=== PATIENT | female | born 1965 | race Caucasian/White ===

== ENCOUNTER 2020-06-30 15:21 | Inpatient (IN) | payer MEDICAID, SELFPAY ==
[2020-06-30 15:22] VITALS: BP 112/94; PULSE 80; RESP 18; TEMP 36.6; O2SAT 94; BMI 22.2
--- NOTE | 2020-06-30 15:23 | W.ED.PSYCH ---
HPI - Psych General: Chief Complaint: Psychiatric Symptoms Stated Complaint: SI Time Seen by Provider: 06/30/20 15:23 Source: patient and EMS Mode of arrival: EMS Limitations: no limitations History of Present Illness: HPI Narrative: Patient is a 55-year-old female who presents to ED today with a complaint of suicidal ideations. Patient tells me she was sitting on the side of a railroad track hoping the train would come and run her over but states of the last minute she jumped off. Patient states she has lost several family members and states I am the only one left . She states she is having thoughts of wanting to know what it is like on the other side . Patient denies homicidal ideations. She is not experiencing hallucinations. She denies drug use. She admits to occasional alcohol use. Patient sees a provider at [facility] who is treating diagnoses of bipolar, schizophrenia, OCD, and depression. Associated symptoms: Reports depression and suicidal ideation; Deny auditory hallucinations, visual hallucinations or homicidal ideation Treatments prior to arrival: none Review of Systems Const: Denies: fever(s) or chills Card: Denies: chest pain, palpitations, lightheadedness or syncope Resp: Denies: dyspnea GI: Denies: abdominal pain, nausea, vomiting or diarrhea Musc: Denies: neck pain or back pain Skin/Breast: Denies: rash Neuro: Denies: headache(s) Psych: Reports: anxiety, depression and suicidal ideation; Denies: visual hallucinations, auditory hallucinations or homicidal ideation Physical Exam Const: COMMON NORMALS: no acute distress, average body habitus, patient oriented x3, no limitations, healthy appearing, alert and well nourished GENERAL APPEARANCE: cooperative and well kempt ORIENTATION/CONSCIOUSNESS: Yes oriented to person, Yes oriented to place and Yes oriented to time Resp: COMMON NORMALS: normal respiratory effort and clear to auscultation bilaterally AUSCULTATION: clear to auscultation bilaterally Cardio: COMMON NORMALS: regular rate and regular rhythm RATE: regular rate RHYTHM: regular rhythm Neuro: COMMON NORMALS: patient oriented x3 SENSORIUM/ORIENTATION: Yes alert, Yes oriented to person, Yes oriented to place and Yes oriented to time Psych: COMMON NORMALS: mental status grossly normal, Normal thought process present, cooperative, normal affect, speech normal, activity/motor behavior normal, denies hallucinations and denies homicidal ideation APPEARANCE: Yes grossly normal and Yes well kempt ACTIVITY/MOTOR BEHAVIOR: Yes appropriate eye contact and No psychomotor agitation SPEECH: Yes normal speech MOOD & AFFECT: Yes euthymic mood THOUGHT PROCESS: Normal thought process present THOUGHT CONTENT: Yes Normal thought content present ATTENTION/CONCENTRATION: Yes attention grossly intact and Yes concentration grossly intact MEMORY/COGNITION: Yes memory grossly intact and Yes cognition grossly intact INSIGHT: Good insight present (Psych) JUDGEMENT: Good judgement present (Psych) MDM - Psych Lab Data: Labs: Lab Results 06/30/20 06/30/20 06/30/20 Range/Units 15:33 15:40 15:45 WBC 5.0 (4.0-10.0) 10^3/ uL RBC 4.78 (4.1-5.3) 10^6/u L Hgb 15.5 H (11.5-15.3) g/dL Hct 46.8 (37.0-47.0) % MCV 97.9 (81-99) fL MCH 32.4 (28.0-34.0) pg MCHC 33.1 (30.0-36.0) g/dL RDW 14.6 (12.1-15.1) % Plt Count 179 (130-400) 10^3/c mm MPV 10.0 (7.4-10.4) fL Neut % (Auto) 29.8 % Lymph % (Auto) 61.0 % [place]osh[place] % (Auto) 6.6 % Eos % (Auto) 1.6 % Baso % (Auto) 0.8 % Neut # (Auto) 1.50 L (1.8-7.7) 10^3/u L Lymph # (Auto) 3.1 (0.8-4.8) 10^3/u L [place]oshone # (Auto) 0.3 (0.2-0.9) 10^3/u L Eos # (Auto) 0.1 (0.0-0.8) 10^3/u L Baso # (Auto) 0.0 (0.0-0.1) 10^3/u L Nucleated RBC % (a uto) 0 % Nucleated RBCs # 0.0 /100WBC Sodium 140 (136-145) mmol/L Potassium 3.8 (3.5-5.1) mmol/L Chloride 102 (98-107) mmol/L Carbon Dioxide 25 (22-29) mmol/L Anion Gap 16.8 (5-19) BUN 8 (6-20) mg/dL Creatinine 0.6 (0.5-0.9) mg/dL GFR Calculation 104.2 (90-130) mL/min Glucose 102 (65-115) mg/dL Calculated Osmolal ity 286 (285-295) mOsm/k g Calcium 9.1 (8.5-10.5) mg/dL Total Bilirubin 0.2 (0.15-1.2) mg/dL AST 23 (0-32) U/L ALT 17 (0-33) U/L Alkaline Phosphata se 84 (35-105) IU/L Total Protein 8.5 (6.6-8.7) g/dL Albumin 4.7 (3.5-5.2) g/dL Globulin 3.8 (1.3-4.6) g/dL Salicylates < 0.3 L (3-10) mg/dL Urine Opiates Scre en Negative (Negative) ng/mL Acetaminophen < 5.0 L (10-30) ug/mL Ur Barbiturates Sc reen Negative (Negative) ng/mL Ur Phencyclidine S crn Negative (Negative) ng/mL Ur Amphetamines Sc reen Positive H (Negative) ng/mL U Benzodiazepines Scrn Negative (Negative) ng/mL Urine Cocaine Scre en Negative (Negative) ng/mL U Marijuana (THC) Screen Negative (Negative) ng/mL Ethyl Alcohol 174 H (0-10) mg/dL Discharge Plan Discharge Patient Disposition: Admitted As Inpatient Clinical Impression: Suicidal ideation Condition: Stable Coding Level of Care Code ED Development Consultant for Arlette Fwd Exam Expanded Problem Focused
[2020-06-30 15:38] VITALS: RESP 18
[2020-06-30 15:48] LABS: Basophils % 0.8 %; Eosinophils # 0.1 10^3/uL (0.0-0.8); Eosinophils % 1.6 %; Hematocrit 46.8 % (37.0-47.0); Hemoglobin 15.5 g/dL (11.5-15.3); Lymphocytes # 3.1 10^3/uL (0.8-4.8); Mean Corpuscular HGB Conc 33.1 g/dL (30.0-36.0); Mean Corpuscular Hemoglobin 32.4 pg (28.0-34.0); Mean Corpuscular Volume 97.9 fL (81-99); Monocytes # 0.3 10^3/uL (0.2-0.9); Monocytes % 6.6 %; Neutrophils % 29.8 %; Nucleated Red Blood Cells % 0 %; Platelet Count 179 10^3/cmm (130-400); Red Blood Count 4.78 10^6/uL (4.1-5.3); Red Cell Distribution Width 14.6 % (12.1-15.1)
[2020-06-30 16:09] LABS: Amphetamines Screen Urine Positive (Negative); Barbiturates Screen Urine Negative (Negative); Benzodiazepines Screen Urine Negative (Negative); Cocaine Screen Urine Negative (Negative); Opiate Screen Urine Negative (Negative); PCP Screen Urine Negative (Negative); THC Screen Urine Negative (Negative)
[2020-06-30 16:14] LABS: Alanine Aminotransferase 17 U/L (0-33); Albumin Level 4.7 g/dL (3.5-5.2); Alcohol Level 174 mg/dL (0-10); Alkaline Phosphatase 84 IU/L (35-105); Anion Gap 16.8 (5-19); Aspartate Amino Transferase 23 U/L (0-32); Blood Urea Nitrogen 8 mg/dL (6-20); Calcium 9.1 mg/dL (8.5-10.5); Carbon Dioxide 25 mmol/L (22-29); Chloride 102 mmol/L (98-107); Globulin 3.8 g/dL (1.3-4.6); Glomerular Filtration Rate 104.2 mL/min (90-130); Glucose 102 mg/dL (65-115); Osmolality Calculated 286 mOsm/kg (285-295); Potassium 3.8 mmol/L (3.5-5.1); Sodium 140 mmol/L (136-145); Total Bilirubin 0.2 mg/dL (0.15-1.2); Total Protein 8.5 g/dL (6.6-8.7)
[2020-06-30 16:24] LABS: Acetaminophen < 5.0 ug/mL (10-30); Salicylate < 0.3 mg/dL (3-10)
[2020-06-30 16:41] VITALS: BP 108/69; PULSE 76; RESP 18; TEMP 37.1; O2SAT 95
[2020-06-30 16:53] VITALS: RESP 18
[2020-06-30] MEDS: nicotine 2 mg Gum BUCCAL (18:13)
[2020-06-30] MEDS: LORazepam 2 mg Tablet PO (18:46)
[2020-06-30] MEDS: trazodone 50 mg Tablet PO (20:14)
--- NOTE | 2020-06-30 20:14 | PC.NURSE ---
PRN TRAZODONE PT REQUESTING SLEEP AID. ADMINISTERED TRAZODONE 50MG PO. WILL MONITOR FOR MEDICATION EFFECTIVENESS.
[2020-06-30 20:53] VITALS: BP 136/84; PULSE 75; RESP 21; TEMP 37; O2SAT 97
[2020-07-01 06:00] VITALS: BP 101/68; PULSE 81; RESP 15; TEMP 36.9; O2SAT 94
[2020-07-01] MEDS: lurasidone 20 mg Tablet PO (08:12)
[2020-07-01] MEDS: folic acid 1 mg Tablet PO (08:12)
[2020-07-01] MEDS: multivitamin therapeutic Tablet 1 TAB PO (08:12)
[2020-07-01] MEDS: thiamine 100 mg Tablet PO (08:13)
[2020-07-01 14:00] VITALS: BP 124/70; PULSE 80; RESP 19; TEMP 37.3
--- NOTE | 2020-07-01 14:14 | PM.NHP ---
Providers/Chief Complaint Admitting Physician: Gurwinder Billingsley MD Referral Source: [facility] Chief Complaint: SI HPI NPU History of Present Illness Leda Knapp is a 55 year old female who presented to ED yesterday with a complaint of suicidal ideation. Patient was sitting on the railroad track hoping a train would run her over but at the last minute she jumped off. Patient states she has lost several family members and states I am the only one left . This is not entirely true. Upon inquiry, she says she has cousins, aunts and uncles. She states she is having thoughts of wanting to know what it is like on the other side . Patient denies homicidal ideation. She is not experiencing hallucinations. She denies drug use but her urine is positive for methamphetamine as well as alcohol. She admits to occasional alcohol use. Patient sees a provider at [facility] who is treating diagnoses of bipolar disorder, schizophrenia, OCD, and depression. Associated symptoms: Reports depression and suicidal ideation; Deny auditory hallucinations, visual hallucinations or homicidal ideation Review of Systems Narrative: Const: Denies: fever(s) or chills Card: Denies: chest pain, palpitations, lightheadedness or syncope Resp: Denies: dyspnea GI: Denies: abdominal pain, nausea, vomiting or diarrhea Musc: Denies: neck pain or back pain Skin/Breast: Denies: rash Neuro: Denies: headache(s) Psych: Reports: anxiety, depression and suicidal ideation; Denies: visual hallucinations, auditory hallucinations or homicidal ideation Meds NPU Home Medications Medication Instructions Recorded Confirmed Last Taken Type budesonide-formoterol [Symbicort] 1 puff INHALATION BID 06/30/20 06/30/20 06/30/20 History lurasidone [Latuda] 20 mg PO DAILY 06/30/20 06/30/20 06/30/20 History trazodone 100 mg PO BEDTIME 06/30/20 06/30/20 06/29/20 History Allergies Allergy/AdvReac Type Severity Reaction Status Date / Time No Known Allergies Allergy Verified 06/30/20 15:29 Mental Status Exam MSE Comments: The patient is a 55-year-old female who presents at her stated age. She is clean and neat and well organized. There are no inappropriate behaviors. Mood, however is despondent and affect is flat. She has limited thought processes and may be cognitively impaired. Orientation, however, is sufficient for safety but not insight and judgment. She now avows that she can keep herself safe in the structure of the millbanner. Vitals/I&O/Wt Last Vital Signs Temp 98.4 F 07/01/20 06:00 Pulse 81 07/01/20 06:00 Resp 15 07/01/20 06:00 BP 101/68 07/01/20 06:00 Pulse Ox 94 07/01/20 06:00 Weight last 48 hrs Weight 108 lb 12.8 oz Weight 110 lb Physical Exam Narrative: EXAM NARRATIVE: Const: COMMON NORMALS: no acute distress, average body habitus, patient oriented x3, no limitations, healthy appearing, alert and well nourished GENERAL APPEARANCE: cooperative and well kempt ORIENTATION/CONSCIOUSNESS: Yes oriented to person, Yes oriented to place and Yes oriented to time Resp: COMMON NORMALS: normal respiratory effort and clear to auscultation bilaterally AUSCULTATION: clear to auscultation bilaterally Cardio: COMMON NORMALS: regular rate and regular rhythm RATE: regular rate RHYTHM: regular rhythm Neuro: COMMON NORMALS: patient oriented x3 SENSORIUM/ORIENTATION: Yes alert, Yes oriented to person, Yes oriented to place and Yes oriented to time Data NPU : 06/30/20 15:33 06/30/20 15:40 A&P Assessment and plan (1) Suicidal ideation: See below. Status: Acute (2) Schizoaffective disorder, bipolar type: Patient states that Latuda works well for her. Between pharmacotherapy, millieu and grief therapy she should do well. Status: Acute Involuntary Hold Information 96 Hour Hold: 96 Hour Involuntary Admission: No Other Hold: Comments: An affidavit is in the chart. Attestations NPU Medical Necessity Statement*: I anticipate 4-6 midnights additional hospital stay. Coding Level of Care Code Acute Bull Driver for Arlette Quevedo Diagnoses Suicidal ideation R45.851 Schizoaffective disorder, bipolar type F25.0
[2020-07-01] MEDS: nicotine 2 mg Gum BUCCAL (17:58)
[2020-07-01] MEDS: trazodone 100 mg Tablet PO (20:47)
[2020-07-01 22:00] VITALS: BP 144/62; PULSE 72; RESP 17; TEMP 36.6; O2SAT 96
[2020-07-02 06:00] VITALS: BP 123/82; PULSE 69; RESP 17; TEMP 36.5; O2SAT 95
[2020-07-02] MEDS: multivitamin therapeutic Tablet 1 TAB PO (08:44)
[2020-07-02] MEDS: nicotine 2 mg Gum BUCCAL ×2 (08:44→12:46)
[2020-07-02] MEDS: lurasidone 20 mg Tablet PO (08:44)
[2020-07-02] MEDS: folic acid 1 mg Tablet PO (08:44)
[2020-07-02] MEDS: thiamine 100 mg Tablet PO (08:44)
[2020-07-02 14:00] VITALS: BP 135/90; PULSE 77; RESP 18; TEMP 36.3; O2SAT 94
--- NOTE | 2020-07-02 15:04 | P.PN_ITS ---
Subjective NPU Medications: Reviewed: Yes Medication Review Details: Current Medications Acetaminophen (Tylenol) 650 mg PO Q4H PRN PRN Reason: MILD PAIN Benztropine Mesylate (Cogentin) 1 mg PO BID PRN PRN Reason: Mild Extrapyramidal symptoms Camphor/Menthol/Phenol (Blistex) 1 applic TOPICAL Q1H PRN PRN Reason: DRYNESS Diphenhydramine HCl (Benadryl) 50 mg IM ONCE PRN PRN Reason: Severe Extrapyramidal Symptoms Diphenhydramine HCl (Benadryl) 50 mg IM Q4H PRN PRN Reason: Severe Aggression Folic Acid (Folic Acid) 1 mg PO DAILY [facility] Last Admin: 07/02/20 08:44 Dose: 1 mg Documented by: Haloperidol (Haldol) 5 mg PO Q4H PRN PRN Reason: AGITATION Haloperidol Lactate (Haldol Inj) 5 mg IM Q4H PRN PRN Reason: Severe Aggression Hydroxyzine Pamoate (Vistaril) 50 mg PO Q6H PRN PRN Reason: ANXIETY Loperamide HCl (Imodium Capsule) 2 mg PO Q6H PRN PRN Reason: DIARRHEA Lorazepam (Ativan) 2 mg IM Q4H PRN PRN Reason: Severe Aggression Lorazepam (Ativan) 2 mg IM PROTOCOL PRN; Protocol PRN Reason: ALCOWD Lorazepam (Ativan) 2 mg PO PROTOCOL PRN; Protocol PRN Reason: WITHDRAWAL Last Admin: 06/30/20 18:46 Dose: 2 mg Documented by: Lurasidone HCl (Latuda) 20 mg PO DAILY [facility] Last Admin: 07/02/20 08:44 Dose: 20 mg Documented by: Multivitamins Therapeutic (Multivitamin Tab) 1 tab PO DAILY [facility] Last Admin: 07/02/20 08:44 Dose: 1 tab Documented by: Nicotine (Nicoderm 21 Mg Patch) 1 patch TRANSDERMA DAILY PRN PRN Reason: NICOTINE WITHDRAWAL Nicotine Polacrilex (Nicorette) 2 mg BUCCAL Q2H PRN PRN Reason: NICOTINE WITHDRAWAL Last Admin: 07/02/20 12:46 Dose: 2 mg Documented by: Olanzapine (Zyprexa Zydis) 5 mg PO Q4H PRN PRN Reason: Agitation/Psychosis Ondansetron HCl (Zofran) 4 mg PO Q6H PRN PRN Reason: NAUSEA AND VOMITING Fluticasone/Salmeterol (Advair Diskus 500-50) 1 puff INHALATION BID [facility] Last Admin: 07/02/20 12:47 Dose: Not Given Documented by: Thiamine Mononitrate (Vitamin B-1) 100 mg PO DAILY [facility] Last Admin: 07/02/20 08:44 Dose: 100 mg Documented by: Trazodone HCl (Desyrel) 50 mg PO BEDTIME PRN PRN Reason: SLEEP Last Admin: 06/30/20 20:14 Dose: 50 mg Documented by: Trazodone HCl (Desyrel) 100 mg PO BEDTIME [facility] Last Admin: 07/01/20 20:47 Dose: 100 mg Documented by: Vitals/I&O/Wt Last Vital Signs Temp 97.7 F 07/02/20 06:00 Pulse 69 07/02/20 06:00 Resp 17 07/02/20 06:00 BP 123/82 07/02/20 06:00 Pulse Ox 95 07/02/20 06:00 Weight last 48 hrs Weight 108 lb 12.8 oz Weight 110 lb Data NPU : 06/30/20 15:33 06/30/20 15:40 Involuntary Hold Information 96 Hour Hold: 96 Hour Involuntary Admission: No Coding Level of Care Code Acute Rock Wool Insulator for Arlette Quevedo
--- NOTE | 2020-07-02 15:12 | PM.NDC ---
Diagnoses at Discharge Discharge Diagnosis (1) Suicidal ideation: Status: Resolved (2) Schizoaffective disorder, bipolar type: Status: Chronic Problem details: Patient has plan for follow-up. Reason for Visit Reason for Visit: SI Hospital Course Hospital Course The patient has been off drugs of abuse. She is taking her regular regimen and been involved a in the [employer]. She was easily redirectable and improved with each passing day. Discharge Summary Patient is referred to [facility] for mental health follow-up. She also has referral information for [facility]. Involuntary Hold Information 96 Hour Hold: 96 Hour Involuntary Admission: No Mental Status Exam MSE Comments: The patient is a 55-year-old female who presents at her stated age. She is clean and neat and well organized. There are no inappropriate behaviors. Mood is now not only not despondent but upbeat and affect is bright and cheery. She has a plan for staying out of the NPU and today does not look cognitively impaired. Orientation, insight and judgment are sufficient for safety. She now avows that she will follow her discharge plans and feels very comfortable with the idea of going home. Discharge Data Vitals: Last Vital Signs Temp 97.7 F 07/02/20 06:00 Pulse 69 07/02/20 06:00 Resp 17 07/02/20 06:00 BP 123/82 07/02/20 06:00 Pulse Ox 95 07/02/20 06:00 Discharge Plan Discharge Patient Disposition: Home Condition: Stable Prescriptions: Discontinued trazodone 100 mg tablet 100 mg PO BEDTIME RF: 0 budesonide-formoterol [Symbicort] 160-4.5 mcg/actuation HFA aerosol inhaler 1 puff INHALATION BID RF: 0 Latuda 20 mg tablet 20 mg PO DAILY RF: 0 Discharge Orders: Discharge Order (Routine); Ordered 07/02/20 Ordered By: [place] Referrals: [facility] in [facility] [Other] - 1-3 days (call and request an initial intake for outpatient mental health services. ) [facility] [Outside] (If you are interested in substance abuse treatment, do call and schedule an initial intake. [facility] is also known [facility]. ) Discharge Diet: Usual diet Discharge Activity: Resume usual activity Activity Restrictions/Additional Instructions: If you want to get a ride through medicaid transport, call at least 5 days ahead at [phone]. Have your address, phone number and provider name to give for the provider information. have your medicaid number available too. NA meetings: Juan M Redmond on Thursday @ 5:30 p.m. - [address] [place] [address] Discharge Attestations NPU Time Spent in Discharge Care*: greater than 30 min Specific Discharge Activities: Specific discharge activities: educating patient, discussing with pillowcase cleaner/social workers/dc planners, documenting/other paperwork and evaluating patient/reviewing data Other discharge activites (optional): Medication review. Status at Discharge: Cognitive status at discharge: cognitively intact, Behavioral status at discharge: cooperative, Functional status at discharge: independent ambulation Overall status at discharge: patient is back to baseline Coding Level of Care Code Acute Computer System Specialist for Arlette Quevedo Diagnoses Suicidal ideation R45.851 Schizoaffective disorder, bipolar type F25.0
[2020-07-02 15:13] VITALS: BP 123/82; PULSE 69; RESP 17; TEMP 36.5; O2SAT 95
== END 2020-07-02 16:45 | disposition home or self-care (01) | DRG 885 ==
LOC: ER 16:32 → NP 16:47
PROVIDERS: Physician Assistant; Admitting Provider Psychiatry & Neurology Psychiatry; Visit Provider Psychiatry & Neurology Psychiatry
DX: F25.0 Schizoaffective disorder, bipolar type (principal); R45.851 Suicidal ideations
CPT/HCPCS: 12345; 80053; 80306; 80307; 85025; 99284

== ENCOUNTER → 2020-07-20 08:25 | Outpatient (BNVA) | payer MEDICAID, SELFPAY | PROVIDERS: Visit Provider Counselor Professional | DX: F25.0 Schizoaffective disorder, bipolar type (principal) | CPT/HCPCS: 90832 ==

== ENCOUNTER 2021-03-14 02:12 | Inpatient (IN) | payer MEDICAID, SELFPAY ==
[2021-03-14 02:15] VITALS: BP 124/58; PULSE 84; RESP 20; TEMP 36.7; O2SAT 94; BMI 23.2
--- NOTE | 2021-03-14 02:18 | ED_ITS ---
HPI - Psych General: Chief Complaint: General Medical Stated Complaint: SI Time Seen by Provider: 03/14/21 02:15 Source: patient and EMS Mode of arrival: EMS Limitations: no limitations History of Present Illness: HPI Narrative: 56-year-old female who has a history of bipolar states that she would like her meds are no longer working. She states she is just been extremely anxious and feels manic. She is disheveled has rapid speech. She denies any suicidal homicidal ideation states she feels like she needs to be admitted to adjust her meds for her leonides. She denies any worsening proving factors. Denies any drug use. Associated symptoms: Reports depression Review of Systems Const: Denies: fever(s), chills, body aches or change in appetite Eyes: Denies: blurry vision or eye discomfort ENMT: Denies: throat pain or dental pain Card: Denies: chest pain Resp: Denies: dyspnea GI: Denies: abdominal pain, nausea, vomiting or diarrhea : Denies: dysuria Musc: Denies: neck pain or back pain Skin/Breast: Denies: rash Neuro: Denies: headache(s) Psych: Reports: anxiety, depression, mood swings and sleeping less Raj/Lymph: Denies: easy bruising All/Imm: Denies: urticaria PFSH ED PFSH: Medical History (Updated 03/14/21 @ 03:18 by Sim Lockwood MD) COPD (chronic obstructive pulmonary disease) Social History Current gender identity: Female Physical Exam Const: COMMON NORMALS: no acute distress, patient oriented x3 and healthy appearing GENERAL APPEARANCE: disheveled HENMT: COMMON NORMALS: normocephalic and atraumatic HEAD & SCALP: normocephalic and atraumatic Eye: COMMON NORMALS: Equal, round and reactive pupils present and EOMs intact bilaterally PUPIL: Yes Equal, round and reactive pupils present Neck/C-Spine: COMMON NORMALS: full ROM and supple Chest: COMMONS NORMALS: normal inspection of the chest and normal palpation of entire chest wall Resp: COMMON NORMALS: normal respiratory effort, No retractions, No use of accessory muscles and clear to auscultation bilaterally AUSCULTATION: clear to auscultation bilaterally Cardio: COMMON NORMALS: regular rate, regular rhythm and No murmurs present (Cardio) RATE: regular rate RHYTHM: regular rhythm GI: COMMON NORMALS: Normal to inspection, nondistended, normoactive bowel sounds present, Soft to palpation, non-tender and no masses PALPATION: Yes Soft to palpation Extremity: COMMON NORMALS: normal to inspection and full ROM Neuro: COMMON NORMALS: patient oriented x3, moves all extremities and no focal motor deficits Psych: COMMON NORMALS: mental status grossly normal, Normal thought process present and cooperative MOOD & AFFECT: Yes elevated mood and Yes anxious THOUGHT PROCESS: Normal thought process present, disorganized and Flight of ideas present Skin: COMMON NORMALS: no rashes or lesions noted and no wounds GENERAL SKIN EXAM: no rashes or lesions noted Course Vital Signs: Vital signs: Vital Signs Temperature 98.1 F 03/14/21 02:15 Pulse Rate 84 03/14/21 02:15 Respiratory Rate 20 H 03/14/21 02:15 Blood Pressure 124/58 03/14/21 02:15 Pulse Oximetry 94 03/14/21 02:15 MDM - Psych MDM Narrative: Medical decision making narrative: Patient presents here with acute leonides with her bipolar. Patient is voluntarily wanting to be admitted. She is not SI or HI I spoke to psychiatrist and will admit for medication adjustment. Patient has been stable while here and is medically cleared. Lab Data: Labs: Lab Results 03/14/21 03/14/21 Range/Units 02:40 02:40 WBC 6.1 (4.0-10.0) 10^3/ uL RBC 4.22 (4.1-5.3) 10^6/u L Hgb 13.1 (11.5-15.3) g/dL Hct 42.0 (37.0-47.0) % MCV 99.5 H (81-99) fL MCH 31.0 (28.0-34.0) pg MCHC 32.2 (30.0-36.0) g/dL RDW 14.0 (12.1-15.1) % Plt Count 122 L (130-400) 10^3/c mm MPV 10.6 H (7.4-10.4) fL Neut % (Auto) 41.7 % Lymph % (Auto) 48.0 % [place] % (Auto) 8.2 % Eos % (Auto) 1.1 % Baso % (Auto) 0.8 % Neut # (Auto) 2.56 (1.8-7.7) 10^3/u L Lymph # (Auto) 2.9 (0.8-4.8) 10^3/u L [place] # (Auto) 0.5 (0.2-0.9) 10^3/u L Eos # (Auto) 0.1 (0.0-0.8) 10^3/u L Baso # (Auto) 0.1 (0.0-0.1) 10^3/u L Absolute Gran (aut o) 2.6 (1.5-8.7) 10^3/u L Nucleated RBC % (a uto) 0 % Nucleated RBCs # 0.0 /100WBC Sodium 137 (136-145) mmol/L Potassium 3.7 (3.5-5.1) mmol/L Chloride 104 (98-107) mmol/L Carbon Dioxide 20 L (22-29) mmol/L Anion Gap 16.7 (5-19) BUN 9 (6-20) mg/dL Creatinine 0.7 (0.5-0.9) mg/dL GFR Calculation 86.9 L (90-130) mL/min Glucose 110 (65-115) mg/dL Calculated Osmolal ity 283 L (285-295) mOsm/k g Calcium 8.4 L (8.5-10.5) mg/dL Total Bilirubin 0.3 (0.15-1.2) mg/dL AST 46 H (0-32) U/L ALT 21 (0-33) U/L Alkaline Phosphata se 91 (35-105) IU/L Total Protein 7.0 (6.6-8.7) g/dL Albumin 3.7 (3.5-5.2) g/dL Globulin 3.3 (1.3-4.6) g/dL Salicylates < 0.3 L (3-10) mg/dL Acetaminophen < 5.0 L (10-30) ug/mL Ethyl Alcohol 27 H (0-10) mg/dL Discharge Plan Discharge Patient Disposition: Admitted As Inpatient Clinical Impression: Schizoaffective disorder, bipolar type Condition: Stable Coding Level of Care Code ED Administrative Volunteer for Chg Fwd Exam Comprehensive
[2021-03-14] MEDS: LORazepam 1 mg Tablet 2 MG PO (02:41)
[2021-03-14] MEDS: ziprasidone 20 mg/mL SDV IM (02:43)
[2021-03-14 03:08] LABS: Hemoglobin 13.1 g/dL (11.5-15.3); Mean Corpuscular HGB Conc 32.2 g/dL (30.0-36.0); Mean Corpuscular Volume 99.5 fL (81-99); Mean Platelet Volume 10.6 fL (7.4-10.4); Neutrophils % 41.7 %; Platelet Count 122 10^3/cmm (130-400); Red Blood Count 4.22 10^6/uL (4.1-5.3); White Blood Count 6.1 10^3/uL (4.0-10.0)
[2021-03-14 03:09] LABS: Basophils # 0.1 10^3/uL (0.0-0.1); Basophils % 0.8 %; Eosinophils # 0.1 10^3/uL (0.0-0.8); Eosinophils % 1.1 %; Monocytes # 0.5 10^3/uL (0.2-0.9); Monocytes % 8.2 %; Neutrophils # 2.56 10^3/uL (1.8-7.7); Nucleated Red Blood Cells % 0 %
[2021-03-14 03:10] LABS: Granulocytes # 2.6 10^3/uL (1.5-8.7); Lymphocytes # 2.9 10^3/uL (0.8-4.8)
[2021-03-14 03:21] LABS: Alanine Aminotransferase 21 U/L (0-33); Albumin Level 3.7 g/dL (3.5-5.2); Alcohol Level 27 mg/dL (0-10); Alkaline Phosphatase 91 IU/L (35-105); Aspartate Amino Transferase 46 U/L (0-32); Blood Urea Nitrogen 9 mg/dL (6-20); Calcium 8.4 mg/dL (8.5-10.5); Carbon Dioxide 20 mmol/L (22-29); Chloride 104 mmol/L (98-107); Globulin 3.3 g/dL (1.3-4.6); Glomerular Filtration Rate 86.9 mL/min (90-130); Glucose 110 mg/dL (65-115); Osmolality Calculated 283 mOsm/kg (285-295); Sodium 137 mmol/L (136-145); Total Bilirubin 0.3 mg/dL (0.15-1.2)
[2021-03-14 03:22] LABS: Acetaminophen < 5.0 ug/mL (10-30); Salicylate < 0.3 mg/dL (3-10)
[2021-03-14 03:23] LABS: Anion Gap 16.7 (5-19); Potassium 3.7 mmol/L (3.5-5.1)
[2021-03-14 04:44] VITALS: BP 113/72; PULSE 70; RESP 15; TEMP 36.1; O2SAT 92
[2021-03-14 04:51] VITALS: BP 112/56; PULSE 72; RESP 16; O2SAT 94
--- NOTE | 2021-03-14 05:24 | PC.NURSE ---
pt unable to sign belongings documentation/was medicated upon arrival/indira//2021
[2021-03-14 05:46] VITALS: RESP 16
[2021-03-14 14:00] VITALS: BP 128/82; PULSE 84; RESP 20; TEMP 37.2; O2SAT 92
--- NOTE | 2021-03-14 16:52 | P.HP_ITS ---
Providers/Chief Complaint Admitting Physician: Brie El DO Primary Care Provider: LIBRADO Amador Chief Complaint: SI HPI NPU History of Present Illness Leda Knapp is a 56 year old female who presented to the emergency department with the following report: Chief Complaint: General Medical Stated Complaint: SI Time Seen by Provider: 03/14/21 02:15 Source: patient and EMS Mode of arrival: EMS Limitations: no limitations History of Present Illness: HPI Narrative: 56-year-old female who has a history of bipolar states that she would like her meds are no longer working. She states she is just been extremely anxious and feels manic. She is disheveled has rapid speech. She denies any suicidal homicidal ideation states she feels like she needs to be admitted to adjust her meds for her leonides. She denies any worsening proving factors. Denies any drug use. Associated symptoms: Reports depression. She was admitted to the neuropsychiatric unit for definitive treatment of those issues. When the presented to the unit after receiving 2 doses of medication in the emergency department. Crisis had reached out to her and concerns have been raised by the family due to erratic behavior supposedly drinking and driving. Possibly theft of a family member's vehicle etc. Report from those notes are that she relapsed and stopped taking her medication. Unfortunately she presents today fairly somnolent and arousable but continues to fade to sleep without being able to really complete the answers. Staff members report her essentially eating her sleep at 1 point today. But she was unable to presents for a viable interview. She had a psychiatric inpatient visit for 3 days last year and did not present for her post hospitalization psychiatric evaluation. Per her 07/01/2020 [facility] inpatient evaluation: History of Present Illness Leda Knapp is a 55 year old female who presented to ED yesterday with a complaint of suicidal ideation. Patient was sitting on the railroad track hoping a train would run her over but at the last minute she jumped off. Patient states she has lost several family members and states I am the only one left . This is not entirely true. Upon inquiry, she says she has cousins, aunts and uncles. She states she is having thoughts of wanting to know what it is like on the other side . Patient denies homicidal ideation. She is not experiencing hallucinations. She denies drug use but her urine is positive for methamphetamine as well as alcohol. She admits to occasional alcohol use. Patient sees a provider at [facility] who is treating diagnoses of bipolar disorder, schizophrenia, OCD, and depression. Associated symptoms: Reports depression and suicidal ideation; Deny auditory hallucinations, visual hallucinations or homicidal ideation Meds NPU Home Medications Medication Instructions Recorded Confirmed Last Taken Type albuterol sulfate 90 mcg/actuation 2 puff INHALATION Q6H PRN 03/03/21 03/15/21 03/13/21 History aerosol inhaler budesonide-formoterol HFA 160 2 puff INHALATION BID 03/03/21 03/15/21 03/13/21 History mcg-4.5 mcg/actuation aerosol inhaler escitalopram oxalate 10 mg tablet 10 mg PO DAILY 03/03/21 03/15/21 03/13/21 09:00 History inhalational spacing device #1 ea 03/03/21 03/15/21 Unknown Rx trazodone 100 mg tablet 150 mg PO DAILY PRN tab 03/03/21 03/15/21 Unknown History albuterol sulfate 2.5 mg INHALATION Q6H PRN 03/15/21 03/15/21 03/13/21 History nebulizers 03/15/21 03/15/21 Unknown History Allergies Allergy/AdvReac Type Severity Reaction Status Date / Time No Known Allergies Allergy Verified 03/03/21 10:43 PFS NPU PFSH: Medical History (Updated 03/14/21 @ 03:18 by Sim Lockwood MD) COPD (chronic obstructive pulmonary disease) Social History Current gender identity: Female Mental Status Exam MSE Comments: This is a well-nourished well-developed white female in hospital scrubs with limited grooming and eye contact. No abnormal movements except for significant psychomotor retardation. Mostly uncooperative with exam in no apparent distress. Speech was mostly absent and decreased rate and volume and mumbling. Mood not described affect somnolent and subdued. Thought process appears linear. Thought content: Patient did not report suicidal or homicidal ideation, there are no delusions reported and none were noted. There is no auditory or visual hallucinations reported but most questions were not answered. Attention and concentration were impaired and memory was not able to be evaluated, and none were formally tested. She is full and oriented x3. Insight and judgment are impaired, control appears limited. Vitals/I&O/Wt Last Vital Signs Temp 99.0 F 03/14/21 14:00 Pulse 84 03/14/21 14:00 Resp 20 H 03/14/21 14:00 BP 128/82 03/14/21 14:00 Pulse Ox 92 03/14/21 14:00 Weight last 48 hrs Weight 52.163 kg Data NPU : 03/14/21 02:40 03/14/21 02:40 A&P Assessment and plan (1) COPD (chronic obstructive pulmonary disease): Status: Acute Qualifiers: COPD type: COPD with acute exacerbation Qualified Code(s): J44.1 - Chronic obstructive pulmonary disease with (acute) exacerbation (2) Chronic cough: Status: Acute (3) Tobacco abuse: Status: Acute (4) Schizoaffective disorder, bipolar type: Status: Chronic Additional A&P Information This is a 56-year-old Y female with a long history of mental health issues in cluding admissions in this facility as far back as 2011 who presents on a 96- hour hold somnolent and essentially unable to be evaluated with in terms of nonadherence to her medication and erratic behavior. 1. Continue current medication. We will identify previous medication attempt to restart if it was effective get some collateral information from the outpatient team 2. Continue every 15 minute checks for safety. 3. Encourage individual, group and milieu therapies. 4. Encourage sober living treatment after discharge at the highest level of care to which he is willing to commit. Involuntary Hold Information 96 Hour Hold: 96 Hour Involuntary Admission: No Attestations NPU Medical Necessity Statement*: Inpatient hospitalization is medically necessary and the clinically appropriate intervention at this time. We will monitor medications and make changes as indicated. Patient will be in the hospital for over two midnights. Likely length of stay 3 to 5 days. Coding Level of Care Code Acute Configuration Management Advisor for Arlette Quevedo Diagnoses COPD (chronic obstructive pulmonary disease) J44.1 COPD type: COPD with acute exacerbation Chronic cough R05 Tobacco abuse Z72.0 Schizoaffective disorder, bipolar type F25.0
[2021-03-14] MEDS: nicotine 2 mg Gum BUCCAL (21:00)
[2021-03-14 22:00] VITALS: BP 114/83; PULSE 80; RESP 17; TEMP 36.6; O2SAT 95
[2021-03-15] VITALS (7 sets, daily range): BP systolic 148–156; BP diastolic 85–86; PULSE 79–88; RESP 18–20; TEMP 36.6–37.1; O2SAT 94–97
[2021-03-15] MEDS: albuterol 8 gm MDI 2 PUFF INHALATION (01:40)
[2021-03-15] MEDS: acetaminophen 325 mg Tablet 650 MG PO ×2 (02:00→11:28)
[2021-03-15 03:02] LABS: Amphetamines Screen Urine Negative (Negative); Barbiturates Screen Urine Negative (Negative); Benzodiazepines Screen Urine Positive (Negative); Cocaine Screen Urine Negative (Negative); Opiate Screen Urine Negative (Negative); PCP Screen Urine Negative (Negative); THC Screen Urine Negative (Negative)
--- NOTE | 2021-03-15 08:39 | PC.NURSE ---
refused scheduled Lexpro this morning
[2021-03-15] MEDS: escitalopram 10 mg Tablet PO (08:52)
--- NOTE | 2021-03-15 08:52 | PC.NURSE ---
pt agreeable to taking scheduled Lexapro now
--- NOTE | 2021-03-15 11:52 | PM.NDC ---
Diagnoses at Discharge Discharge Diagnosis (1) COPD (chronic obstructive pulmonary disease): Status: Acute Qualifiers: COPD type: COPD with acute exacerbation Qualified Code(s): J44.1 - Chronic obstructive pulmonary disease with (acute) exacerbation (2) Chronic cough: Status: Acute (3) Tobacco abuse: Status: Acute (4) Schizoaffective disorder, bipolar type: Status: Chronic Permanent problem details: Patient has plan for follow-up. Reason for Visit Reason for Visit: SI Brief History: History of Present Illness Leda Knapp is a 56 year old female who presented to the emergency department with the following report: Chief Complaint: General Medical Stated Complaint: SI Time Seen by Provider: 03/14/21 02:15 Source: patient and EMS Mode of arrival: EMS Limitations: no limitations History of Present Illness: HPI Narrative: 56-year-old female who has a history of bipolar states that she would like her meds are no longer working. She states she is just been extremely anxious and feels manic. She is disheveled has rapid speech. She denies any suicidal homicidal ideation states she feels like she needs to be admitted to adjust her meds for her leonides. She denies any worsening proving factors. Denies any drug use. Associated symptoms: Reports depression. She was admitted to the neuropsychiatric unit for definitive treatment of those issues. When the presented to the unit after receiving 2 doses of medication in the emergency department. Crisis had reached out to her and concerns have been raised by the family due to erratic behavior supposedly drinking and driving. Possibly theft of a family member's vehicle etc. Report from those notes are that she relapsed and stopped taking her medication. Unfortunately she presents today fairly somnolent and arousable but continues to fade to sleep without being able to really complete the answers. Staff members report her essentially eating her sleep at 1 point today. But she was unable to presents for a viable interview. She had a psychiatric inpatient visit for 3 days last year and did not present for her post hospitalization psychiatric evaluation. Per her 07/01/[address] [facility] inpatient evaluation: History of Present Illness Leda Knapp is a 55 year old female who presented to ED yesterday with a complaint of suicidal ideation. Patient was sitting on the railroad track hoping a train would run her over but at the last minute she jumped off. Patient states she has lost several family members and states I am the only one left . This is not entirely true. Upon inquiry, she says she has cousins, aunts and uncles. She states she is having thoughts of wanting to know what it is like on the other side . Patient denies homicidal ideation. She is not experiencing hallucinations. She denies drug use but her urine is positive for methamphetamine as well as alcohol. She admits to occasional alcohol use. Patient sees a provider at [facility] [place] who is treating diagnoses of bipolar disorder, schizophrenia, OCD, and depression. Associated symptoms: Reports depression and suicidal ideation; Deny auditory hallucinations, visual hallucinations or homicidal ideation Hospital Course Hospital Course During the hospitalization, patient had routine laboratory studies which were within normal limits except for few outliers. Additionally there was a general medical evaluation which was also within normal limits and revealed no new acute processes. Discharge Summary: At the time of discharge, psychosis and lethality were denied. Mood and anxiety were well managed. Patient endorsed a plan to avoid all drugs of abuse and follow-up with the aftercare recommendations of the treatment team. Patient was evaluated and deemed to be absent credible lethality, she had no symptoms that would demand a 96-hour hold and she was on a voluntary status and requested to leave AGAINST MEDICAL ADVICE, so was discharged. Involuntary Hold Information 96 Hour Hold: 96 Hour Involuntary Admission: No Mental Status Exam MSE Comments: This is a well-nourished well-developed white female in hospital scrubs with adequate grooming and eye contact. No abnormal movements except for resolving psychomotor retardation. More cooperative with exam in no apparent distress. Speech was more normal rate and volume. Mood reportedly better, affect more alert congruent. Thought process appears organized. Thought content: Patient did not report suicidal or homicidal ideation, there are no delusions reported and none were noted. There is no auditory or visual hallucinations reported.. Attention and concentration were intact and memory appeared reliable, but none were formally tested. She is full and oriented x3. Insight and judgment are improving, control appears improving. Discharge Data Vitals: Last Vital Signs Temp 98.7 F 03/15/21 17:52 Pulse 87 03/15/21 17:52 Resp 20 H 03/15/21 17:52 BP 156/86 03/15/21 17:52 Pulse Ox 95 03/15/21 17:52 Discharge Plan Discharge Patient Disposition: Home Condition: Stable Prescriptions: Continued trazodone 100 mg tablet 150 mg PO DAILY PRN (Reason: Insomnia) RF: 0 escitalopram oxalate 10 mg tablet 10 mg PO DAILY RF: 0 budesonide-formoterol [Symbicort] 160-4.5 mcg/actuation HFA aerosol inhaler 2 puff inhalation BID RF: 0 albuterol sulfate [ProAir HFA] 90 mcg/actuation HFA aerosol inhaler 2 puff inhalation Q6H PRN (Reason: Shortness Of Breath) RF: 0 (DME) BreatheRite MDI Spacer Spacer See Rx Instructions .Route Qty: 1 RF: 0 albuterol sulfate 2.5 mg /3 mL (0.083 %) solution for nebulization 2.5 mg inhalation Q6H PRN (Reason: Cough) RF: 0 (DME) nebulizers Misc See Rx Instructions MISCELLANEOUS .MEDSUPPLY RF: 0 Referrals: Wendy Blair MD [[facility]] - 05/09/21 8:30 am (This appointment is for a psych evaluation. ) Jesika Strauss FNP [Primary Care Provider] - Patient Instructions: Opioid Safety Discharge Attestations NPU Time Spent in Discharge Care*: less than 30 min Specific Discharge Activities: Specific discharge activities: educating patient, discussing with nurse case management/social workers/dc planners, documenting/other paperwork and evaluating patient/reviewing data Status at Discharge: Cognitive status at discharge: cognitively intact, Behavioral status at discharge: cooperative, Coding Level of Care Code Acute [facility] DC note Diagnoses COPD (chronic obstructive pulmonary disease) J44.1 COPD type: COPD with acute exacerbation Chronic cough R05 Tobacco abuse Z72.0 Schizoaffective disorder, bipolar type F25.0
--- NOTE | 2021-03-15 17:32 | PC.RESP ---
Smoking Cessation and Pulmonary Rehab information sent to patient.
--- NOTE | 2021-03-15 17:53 | PC.NURSE ---
PT REQUEST TO LEAVE AMA. DR. KAHN ORDER FOR PT TO DISCHARGE AMA. APPROPRIATE AMA PAPERWORK FILLED OUT BY PATIENT. ALL BELONGINGS GIVEN TO PT. PT AMBULATED OFF UNIT. WISHED WELL.
== END 2021-03-15 17:56 | disposition home or self-care (01) | DRG 885 ==
LOC: ER 03:18 → NP 08:42
PROVIDERS: Admitting Provider Psychiatry & Neurology Psychiatry; Emergency Provider Emergency Medicine; PCP Nurse Practitioner Family; Visit Provider Psychiatry & Neurology Psychiatry
DX: F25.0 Schizoaffective disorder, bipolar type (principal); R45.851 Suicidal ideations; J44.1 Chronic obstructive pulmonary disease with (acute) exacerbation; F15.90 Other stimulant use, unspecified, uncomplicated; F42.9 Obsessive-compulsive disorder, unspecified; F17.210 Nicotine dependence, cigarettes, uncomplicated; Z79.51 Long term (current) use of inhaled steroids
CPT/HCPCS: 80053; 80306; 80307; 85025; 94640; 96372; 99285; J3486; J3535